=== PATIENT | female | born 1975 | race Hispanic/Latino ===

== ENCOUNTER 2018-07-24 21:33 | Emergency (ER) | payer MEDICARE ==
[~2018-07-24] VITALS: Ht 170.2 cm; Wt 88.5 kg
--- OUTSIDE RECORDS SUMMARY | 2018-07-24 21:36 | XMS REPORT | CCD ---
Author Author Auto Generated Organization 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 Medications Medication Instructions Start Date End Date Status Flagyl 500 mg oral 500 mg, 1 tab, PO, Q8H, 21 tab, 12/05/2012 12/12/2012 Ordered tablet Substitution Allowed, TAB Ultram 50 mg oral 100 mg, 2 tab, PO, Q4H, PRN, 30 12/05/2012 Ordered tablet tab, pain, Substitution Allowed pneumococcal 0.5 ml, Route: IM, Drug Form: INJ, 01/22/2011 01/22/2011 Completed 23-valent vaccine Start date: 01/22/11 9:00:00, Stop date: 01/22/11 9:00:00 Toradol 30 mg/mL 60 mg, 2 mL, Route: IM, Drug form: 12/05/2012 12/05/2012 Completed injectable solution INJ, ONCE, Dosing Weight 113.636, kg, Start date: 12/05/12 17:41:00, Stop date: 12/05/12 17:41:00 Immunizations Vaccine Date Status pneumococcal 23-valent vaccine 01/22/2011 Not Done Vital Signs Most recent to oldest [Reference Range]: 1 Height 167.64 cm (12/05/2012 14:31:00) Weight 113.636 kg (12/05/2012 14:31:00) Results URINALYSIS Most recent to oldest [Reference Range]: 1 UA Turbidity [Clear] Clear (12/05/2012 17:42:00) UA Color Tina *NA* (12/05/2012 17:42:00) UA pH [5.0-8.0] 5.0 (12/05/2012 17:42:00) UA Spec Grav [<=1.030] 1.031 *HI* (12/05/2012 17:42:00) UA Glucose [Negative mg/dL] 500 mg/dL *ABN* (12/05/2012 17:42:00) UA Blood [Negative] Negative (12/05/2012 17:42:00) UA Ketones [Negative mg/dL] 20 mg/dL *ABN* (12/05/2012 17:42:00) UA Protein [Negative mg/dL] Negative mg/dL (12/05/2012 17:42:00) UA Urobilinogen [0.1-1.0 mg/dL] 2.0 mg/dL *HI* (12/05/2012 17:42:00) UA Bili [Negative] Small *ABN* (12/05/2012 17:42:00) UA Leuk Est [Negative] Negative (12/05/2012 17:42:00) UA Nitrite [Negative] Negative (12/05/2012 17:42:00) UA WBC [0-5 /HPF] 2 /HPF (12/05/2012 17:42:00) UA RBC [0-2 /HPF] 2 /HPF (12/05/2012 17:42:00) UA Sq Epi [Few /LPF] Occasional /LPF *NA* (12/05/2012 17:42:00) CHEMISTRY Most recent to oldest [Reference Range]: 1 U Preg [Negative] Negative (12/05/2012 17:42:00) IMMUNOLOGY Most recent to oldest [Reference Range]: 1 Source Chlam endocervix *NA* (12/05/2012 17:42:00) Chlam PCR [Negative] Negative (12/05/2012 17:42:00) Source Adrian Endocervix *NA* (12/05/2012 17:42:00) Gonorrhea PCR [Negative] Negative (12/05/2012 17:42:00) Microbiology Reports PROCEDURE:Wet Prep STATUS: Auth (Verified) BODY SITE: COLLECTED DATE/TIME: 12/05/2012 17:42:00 SOURCE: Genital FREE TEXT SOURCE: FINAL REPORTS Final Report Occasional WBC's Seen Rare RBC's Seen Occasional Clue Cells Seen Many Epithelial Cells Seen Many Bacteria Seen None Yeast Seen None Trichomonas Species Seen
--- OUTSIDE RECORDS SUMMARY | 2018-07-24 21:36 | XMS REPORT | Encounter Summary ---
Author Organization Unknown Address [address] [place] [address] Phone [phone] Reason for Visit Screening - TB Instructions 1. Tuberculosis screening Tubersol 5 tub. unit/0.1 mL intradermal injection solution PPD (purified protein derivative), skin test - Patient was advised to follow-up with [facility] within 48-72 hours. Discussion Note Pt is in no apparent acute distress; Verbalizes understanding of and agreement with all instructions with no questions at this time. Patient educational handouts: No information available. Plan of Care Patient Instructions Your tuberculin skin test must be read within 48-72 hours. If not, the skin test will be considered invalid and will have to be repeated. Reminders Provider Appointments None recorded. Lab PPD (Purified Protein Derivative), Skin Test 10/11/2017 [facility] Referral None recorded. Procedures None recorded. Surgeries None recorded. Imaging None recorded. Medications Name Start Date Tubersol 5 tub. unit/0.1 mL intradermal injection solution Inject 0.1 mL by intradermal route. Medications Administered Name Date Tubersol 5 tub. unit/0.1 mL intradermal injection solution Inject 0.1 mL by intradermal route. [id number]:00 Vitals None recorded. Lab Results None recorded. Allergies Code Code System Name Reaction Severity Status Onset NKDA Problems None recorded. Procedures None recorded. Vaccine List None recorded. Social History None recorded. Past Encounters 10/11/2017 Tuberculosis Screening WOOD Lewis-C: [address] [place] [address], Ph. History of Present Illness Screening Request - TB Reported By: Patient Screening Request: BCG No prior BCG vaccination. PPD No past history of postive TB skin test (PPD), No previous severe local reaction to TB skin test (PPD). OTHER No prior vaccines within last month Review of Systems Screening - TB Reported By: Patient Symptoms during past year > 2 weeks, NOT associated with specific illness?: unexplained or low grade fever No fever. night sweats No night sweats. unexplained weight loss > 5 lbs No unexplained weight loss. persistent cough No persistent cough. shortness of breath No shortness of breath. coughing up blood (hemoptysis) No coughing up blood (hemoptysis). unusual fatigue No unusual fatigue. loss of appetite No loss of appetite. swollen neck glands No swollen neck glands Physical Exam Screening Reported By: Patient General Appearance: General: well-developed, well-nourished, no acute distress
--- OUTSIDE RECORDS SUMMARY | 2018-07-24 21:36 | XMS REPORT | Continuity of Care Document ---
Author Author [facility] Address Unknown Phone Unavailable Problems Problem Status Onset Date Classification Date Reported Comments Source Tuberculosis screening 10/11/2017 Diagnosis 10/11/2017 [facility] LEG PAIN Active 12/05/2012 [facility] MRSA<sup>1</sup> Active 01/23/2011 Problem 12/07/2012 1MRSA in genital secretions on 01/23/2011. 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 [facility] Abnormal vaginal discharge Active Problem 12/07/2012 [facility] Diabetes mellitus Resolved Problem 12/07/2012 [facility] dm Active Problem 12/07/2012 [facility] Hypertension Resolved Problem 12/07/2012 [facility] Medications Medication Details Route Status Patient Instructions Ordering Provider Order Date Source Flagyl 500 mg oral tablet 500 mg, 1 tab, PO, Q8H, 21 tab, Substitution Allowed, TAB PO Active [facility] 12/05/2012 [facility] Ultram 50 mg oral tablet 100 mg, 2 tab, PO, Q4H, PRN, 30 tab, pain, Substitution Allowed PO Active [facility] 12/05/2012 [facility] Toradol 30 mg/mL injectable solution 60 mg, 2 mL, Route: IM, Drug form: INJ, ONCE, Dosing Weight 113.636, kg, Start date: 12/05/12 17:41:00, Stop date: 12/05/12 17:41:00 IM No Longer Active [facility] 12/05/2012 [facility] pneumococcal 23-valent vaccine 0.5 ml, Route: IM, Drug Form: INJ, Start date: 01/22/11 9:00:00, Stop date: 01/22/11 9:00:00 IM No Longer Active [facility] 01/22/2011 [facility] Purified Protein Derivative of Tuberculin 50 UNT/ML Injectable Solution [Tubersol] Tubersol 5 tub. unit/0.1 mL intradermal injection solution Inject 0.1 mL by intradermal route. Active [facility] Allergies, Adverse Reactions, Alerts Substance Category Reaction Severity Reaction type Status Date Reported Comments Source Immunizations Immunization Date Given Site Status Last Updated Comments Source pneumococcal 23-valent vaccine 01/22/2011 Not Given [facility] Results Order Name Results Value Reference Range Date Interpretation Comments Source CHEMISTRY U Preg Negative (12/05/2012 17:42:00) Negative 12/05/2012 Normal [facility] IMMUNOLOGY Source Chlam endocervix 12/05/2012 NA [facility] IMMUNOLOGY Chlam PCR Negative (12/05/2012 17:42:00) Negative 12/05/2012 Normal [facility] IMMUNOLOGY Source [facility] Endocervix 12/05/2012 NA [facility] IMMUNOLOGY Gonorrhea PCR Negative (12/05/2012 17:42:00) Negative 12/05/2012 Normal [facility] URINALYSIS UA Color Tina 12/05/2012 NA [facility] URINALYSIS UA Sq Epi Occasional /LPF *NA* (12/05/2012 17:42:00) Few 12/05/2012 NA [facility] URINALYSIS UA WBC 2 /HPF 0 - 5 12/05/2012 Normal [facility] URINALYSIS UA Leuk Est Negative (12/05/2012 17:42:00) Negative 12/05/2012 Normal [facility] URINALYSIS UA Turbidity Clear (12/05/2012 17:42:00) Clear 12/05/2012 Normal [facility] URINALYSIS UA RBC 2 /HPF 0 - 2 12/05/2012 Normal [facility] URINALYSIS UA Nitrite Negative (12/05/2012 17:42:00) Negative 12/05/2012 Normal [facility] URINALYSIS UA Urobilinogen 2.0 mg/dL 0.1 - 1.0 12/05/2012 [place] [facility] URINALYSIS UA Blood Negative (12/05/2012 17:42:00) Negative 12/05/2012 Normal [facility] URINALYSIS UA Bili Small *ABN* (12/05/2012 17:42:00) Negative 12/05/2012 ABN [facility] URINALYSIS UA Ketones 20 mg/dL *ABN* (12/05/2012 17:42:00) Negative 12/05/2012 ABN [facility] URINALYSIS UA Glucose 500 mg/dL *ABN* (12/05/2012 17:42:00) Negative 12/05/2012 ABN [facility] URINALYSIS UA pH 5.0 5.0 - 8.0 12/05/2012 Normal [facility] URINALYSIS UA Protein Negative mg/dL (12/05/2012 17:42:00) Negative 12/05/2012 Normal [facility] URINALYSIS UA Spec Grav 1.031 <=1.030 12/05/2012 [place] [facility] Microbiology Wet Prep 12/05/2012 [facility] Vital Signs Vital Sign Value Date Comments Source Weight 113.636 12/05/2012 [facility] Height 167.64 cm 12/05/2012 [facility] Encounters Location Location Details Encounter Type Encounter Number Reason For Visit Attending Provider ADM Date DC Date Status Source [facility] Emergency [id number] RODOLFO MARCELINO 12/05/2012 12/05/2012 Active [facility] [place] - [facility] - [id number] Barnes, [employer]ENT-C: [address] [place] [address], Ph. [id number] Walter Barnes 10/11/2017 [facility] Procedures Procedure Code Date Perfomer Comments Source
[2018-07-24] MEDS ORDERED: LISINOPRIL 10 MG TAB PO ONE (22:00)
[2018-07-24 23:34] VITALS: BP 169/102
== END 2018-07-24 23:35 | disposition home or self-care (01) ==
LOC: ER 21:33
DX: L03.012 Cellulitis of left finger (principal); F17.210 Nicotine dependence, cigarettes, uncomplicated
CPT/HCPCS: 99283